=== PATIENT | male | born 1955 | race Caucasian/White ===

== ENCOUNTER 2019-09-12 08:08 | Day surgery (SDC) | payer MEDICARE, SELFPAY ==
[2019-09-10 13:41] VITALS: BMI 27.2
[2019-09-12 08:15] VITALS: BP 161/90; PULSE 69; RESP 18; TEMP 36.8; O2SAT 97
[2019-09-12] MEDS: sodium chloride 0.9% 1,000 ML 30 ML IV (08:20)
--- NOTE | 2019-09-12 08:27 | ANES.PREANE2 ---
Pre-Anesthetic Assessment Pre-Anesthetic Assessment: Height/Weight: Height 1.78 m Weight 86.183 kg Temp Pulse Resp BP Pulse Ox 98.2 F 69 18 161/90 97 09/12/19 08:15 09/12/19 08:15 09/12/19 08:15 09/12/19 08:15 09/12/19 08:15 Preop Diagnosis: Screening colonoscopy Proposed Procedure: Operation Date: 09/12/19 09:05 Proposed Procedures p Colonoscopy 99229/Z12.11(Not Applicable) - Nigel Juarez MD Familial anesthetic complications: None Was Beta Gabe taken within 24 hours: N/A Last intake: Intake Last Liquid Date 09/11/19 Last Liquid Time 21:00 Last Solid Date 09/10/19 Last Solid Time 18:00 Social: Social History: No alcohol and No tobacco Exam: Pre-Anes Outpt Exam: alert, oriented x 3, clear to auscultation bilaterally and regular rate & rhythm Airway: Cervical ROM: WNL MP: 3 Dentition: Full History/ROS: No significant complaints CV/HEM: CV/HEM: HTN Anesthetic Plan: ASA status: 2 Anesthesia: MAC Risk of > 500 ml blood loss (7ml/kg in children): No Meds/Allergies Current Medications: Current Medications Generic Name Dose Route Start Last Admin Trade Name Freq PRN Reason Stop Dose Admin Sodium Chloride 1,000 mls @ 30 ml s/hr 09/12/19 08:00 09/12/19 08:20 Sodium Chloride 0.9% IV 09/13/19 07:59 30 mls/hr .Q24H RODOLFO Administration PFSH Anesthesia PFSH: Medical History (Updated 08/29/19 @ 17:48 by Nigel Juarez MD) Dysphagia GERD (gastroesophageal reflux disease) Hypertension Surgical History (Updated 08/29/19 @ 17:48 by Nigel Juarez MD) History of colonoscopy with polypectomy (~2003) Family History (Updated 08/29/19 @ 14:09 by Lady Chaves RN) Denies family history of Anesthesia complication Bleeding disorder Social History (Updated 08/29/19 @ 14:09 by Lady Chaves RN) Smoking and tobacco status: never smoked Second hand smoke exposure: No Alcohol intake: never Adopted: No Caregiver/support person: Yes Lives independently: Yes Household members: spouse Housing: House Marital status: Data Anesthesia Cardiac Studies: No Data to Display
--- NOTE | 2019-09-12 08:28 | W.PM.OPSUD ---
Surgery/Procedure H&P Update DATE OF PROCEDURE: September 12, 2019 DATE H&P PERFORMED: 08/29/19 H&P UPDATE INFORMATION: I have reviewed H&P completed within last 30 days, I have examined patient prior to procedure and No changes to prior documentation PREOP DIAGNOSIS: Screening colonoscopy PRIMARY INDICATION FOR PROCEDURE: The same PLANNED PROCEDURE: Operation Date: 09/12/19 09:05 Proposed Procedures p Colonoscopy 54386/Z12.11(Not Applicable) - Nigel Juarez MD
[2019-09-12 09:22] VITALS: BP 123/86; PULSE 72; RESP 16; TEMP 36.5; O2SAT 95
[2019-09-12 09:49] VITALS: BP 127/86; PULSE 67; RESP 18; O2SAT 96
== END 2019-09-12 10:00 | disposition home or self-care (01) ==
PROVIDERS: PCP Family Medicine; Visit Provider Surgery
PROC: 0DJD8ZZ Inspection of Lower Intestinal Tract, Via Natural or Artificial Opening Endoscopic (ICD-10-PCS; CPT 45378; principal; 2019-09-12 09:00)
DX: Z12.11 Encounter for screening for malignant neoplasm of colon (principal); K57.30 Diverticulosis of large intestine without perforation or abscess without bleeding; I10 Essential (primary) hypertension; K21.9 Gastro-esophageal reflux disease without esophagitis
CPT/HCPCS: 12345; 45378; J2704; J7030

== ENCOUNTER → 2020-09-17 08:37 | Outpatient (BNVA) | payer MEDICARE, SELFPAY | PROVIDERS: PCP Family Medicine; Referring Provider Family Medicine; Visit Provider Urology | DX: R97.20 Elevated prostate specific antigen [PSA] (principal); N40.1 Benign prostatic hyperplasia with lower urinary tract symptoms | CPT/HCPCS: 81003; 84153 ==

== ENCOUNTER → 2021-03-24 08:01 | Outpatient (BNVA) | payer MEDICARE, SELFPAY | PROVIDERS: PCP Family Medicine; Visit Provider Nurse Practitioner Family | DX: N40.1 Benign prostatic hyperplasia with lower urinary tract symptoms (principal) | CPT/HCPCS: 81003; 84153 ==

== ENCOUNTER → 2022-05-03 15:50 | Outpatient (BNVA) | payer MEDICARE, SELFPAY | PROVIDERS: PCP Family Medicine; Visit Provider Urology | DX: N40.1 Benign prostatic hyperplasia with lower urinary tract symptoms (principal) | CPT/HCPCS: 51741; 51798; 81003; 99213 ==